=== PATIENT | female | born 1995 | race American Indian/Alaskan Native ===

== ENCOUNTER 2021-04-05 20:24 | Emergency (ER) | payer SELFPAY ==
[2021-04-05] MEDS ORDERED: LIDOCAINE-MPF (1%) 10 MG/1 ML VIAL 5 ML INFILTRATI ONE (22:11)
[2021-04-05] MEDS ORDERED: AZITHROMYCIN 250 MG TAB PO ONE (22:11)
[2021-04-05] MEDS ORDERED: metroNIDAZOLE 500 MG TAB PO ONE (22:11)
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
[2021-04-05] MEDS ORDERED: EMTRICITABINE 200 MG CAP PO STA (22:16)
[2021-04-05] MEDS ORDERED: TENOFOVIR 300 MG TAB PO STA (22:16)
[2021-04-05] MEDS ORDERED: RALTEGRAVIR POTASSIUM 400 MG TAB PO STA (22:16)
[2021-04-06 04:10] VITALS: BP 129/85
== END 2021-04-06 04:11 | disposition home or self-care (01) ==
LOC: ED 20:24
DX: T76.21XA Adult sexual abuse, suspected, initial encounter (principal); Z72.89 Other problems related to lifestyle; Y92.89 Other specified places as the place of occurrence of the external cause
CPT/HCPCS: 96372; 99282; J0696; J3490